=== PATIENT | male | born 1995 | race Caucasian/White ===

== ENCOUNTER 2016-08-23 19:38 | Emergency (ER) | payer OTHER ==
[~2016-08-23] VITALS: Ht 182.9 cm; Wt 89.8 kg
[~2016-08-23 19:38] MED LIST: AUGMENTIN500 MG PO; AZITHROMYCIN250 MG PO; MOTRIN600 MG PO; NO MEDS; NORCO 7.5/321 TABLET PO; PERCOCET 10/1 TABLET PO; PERCOCET 5/31 TABLET PO; PRILOSEC10 MG PO; VENTOLIN HFA18 GM IH
[2016-08-23] MEDS ORDERED: INDOCIN50 MG PO (21:23)
[2016-08-23] MEDS ORDERED: VALIUM5 MG PO (21:23)
[2016-08-23] MEDS ORDERED: LIDODERM 5% P1 PATCH TD (21:23)
[2016-08-23 21:28] VITALS: BP 145/88
== END 2016-08-23 21:28 | disposition home or self-care (01) ==
LOC: EME 19:38
DX: S23.3XXA Sprain of ligaments of thoracic spine, initial encounter (principal); M79.1 Myalgia; X50.9XXA Other and unspecified overexertion or strenuous movements or postures, initial encounter; Y99.0 Civilian activity done for income or pay; Y93.89 Activity, other specified
CPT/HCPCS: 73030; 99281; 99283

== ENCOUNTER 2016-12-29 00:02 | Emergency (ER) | payer OTHER ==
[~2016-12-29] VITALS: Ht 182.9 cm; Wt 91.0 kg
[~2016-12-29 00:02] MED LIST changes: +INDOCIN50 MG PO; +LIDODERM 5% P1 PATCH TD; +VALIUM5 MG PO
[2016-12-29] MEDS ORDERED: NORCO 5/3251 TABLET PO (01:49)
[2016-12-29] MEDS ORDERED: FLEXERIL10 MG PO (01:49)
[2016-12-29 02:08] VITALS: BP 114/75
== END 2016-12-29 02:09 | disposition home or self-care (01) ==
LOC: EXP 00:02 → EME 00:02 → EXP 02:09
DX: S00.81XA Abrasion of other part of head, initial encounter (principal); S00.83XA Contusion of other part of head, initial encounter; S43.402A Unspecified sprain of left shoulder joint, initial encounter; V86.59XA Driver of other special all-terrain or other off-road motor vehicle injured in nontraffic accident, initial encounter; Z87.891 Personal history of nicotine dependence
CPT/HCPCS: 73030; 99281; 99284

== ENCOUNTER 2017-01-08 15:57 | Emergency (ER) | payer OTHER ==
[~2017-01-08] VITALS: Ht 182.9 cm; Wt 88.2 kg
[~2017-01-08 15:57] MED LIST changes: +FLEXERIL10 MG PO; +NORCO 5/3251 TABLET PO
[2017-01-08] MEDS ORDERED: NORCO 5/3251 TABLET PO (18:18)
[2017-01-08] MEDS ORDERED: MOTRIN800 MG PO (18:18)
[2017-01-08] MEDS ORDERED: KEFLEX500 MG PO (18:18)
[2017-01-08 18:52] VITALS: BP 119/65
== END 2017-01-08 18:53 | disposition home or self-care (01) ==
LOC: EME 15:57
PROC: 0H99XZZ Drainage of Perineum Skin, External Approach (ICD-10-PCS; principal; 2017-01-08)
DX: L02.215 Cutaneous abscess of perineum (principal); R30.0 Dysuria
CPT/HCPCS: 99281; 99284

== ENCOUNTER 2017-02-08 17:24 | Emergency (ER) | payer OTHER ==
[~2017-02-08] VITALS: Ht 182.9 cm; Wt 89.4 kg
[~2017-02-08 17:24] MED LIST changes: +KEFLEX500 MG PO; +MOTRIN800 MG PO
[2017-02-08] MEDS ORDERED: BACTRIM,SEPT1 TABLET PO (18:40)
[2017-02-08] MEDS ORDERED: NORCO 5/3251 TABLET PO (18:40)
[2017-02-08 18:59] VITALS: BP 161/91
== END 2017-02-08 19:07 | disposition home or self-care (01) ==
LOC: EME 17:24
PROC: 0H97XZZ Drainage of Abdomen Skin, External Approach (ICD-10-PCS; principal; 2017-02-08)
DX: L02.214 Cutaneous abscess of groin (principal); Z72.0 Tobacco use
CPT/HCPCS: 87070; 87075; 87076; 87077; 87186; 87205; 99281; 99283

== ENCOUNTER 2017-04-17 19:24 | Emergency (ER) | payer OTHER ==
[~2017-04-17] VITALS: Ht 182.9 cm; Wt 92.1 kg
[~2017-04-17 19:24] MED LIST changes: +BACTRIM,SEPT1 TABLET PO
[2017-04-17] MEDS ORDERED: KEFLEX500 MG PO (22:00)
[2017-04-17 22:33] VITALS: BP 128/61
== END 2017-04-17 22:33 | disposition home or self-care (01) ==
LOC: EME 19:24
PROC: 0H9JXZZ Drainage of Left Upper Leg Skin, External Approach (ICD-10-PCS; principal; 2017-04-17)
DX: L02.416 Cutaneous abscess of left lower limb (principal); R55 Syncope and collapse
CPT/HCPCS: 87070; 87075; 87205; 99281; 99284

== ENCOUNTER 2017-08-28 11:32 | Emergency (ER) | payer OTHER ==
[~2017-08-28] VITALS: Ht 182.9 cm; Wt 90.9 kg
[2017-08-28 14:04] VITALS: BP 145/95
== END 2017-08-28 14:05 | disposition home or self-care (01) ==
LOC: EME 11:32
DX: S42.101A Fracture of unspecified part of scapula, right shoulder, initial encounter for closed fracture (principal); V86.56XA Driver of dirt bike or motor/cross bike injured in nontraffic accident, initial encounter; F17.200 Nicotine dependence, unspecified, uncomplicated
CPT/HCPCS: 73010; 73030; 99281; 99283